=== PATIENT | male | born 2000 | race Caucasian/White ===

== ENCOUNTER 2022-09-08 09:13 | Emergency (ER) | payer OTHER ==
[~2022-09-08] VITALS: Ht 177.8 cm; Wt 68.0 kg
[~2022-09-08 09:13] MED LIST: ATOM25 PO; ATOM60 PO; CEPH500 PO; FISH1000 PO; MELA3 PO; MULTCH PO; QUETIAPINE FUM300 MG PO; Tenex1 MG GT; VITAMIN D31000 UNIT PO
[2022-09-08] MEDS ORDERED: IBUP800 PO (09:49)
[2022-09-08] MEDS ORDERED: AMOCLA875 PO (09:49)
== END 2022-09-08 10:00 | disposition home or self-care (01) ==
LOC: ER 09:13
DX: S51.812A Laceration without foreign body of left forearm, initial encounter (principal); W54.0XXA Bitten by dog, initial encounter; Z23 Encounter for immunization
CPT/HCPCS: 12002; 90471; 90714; 99282-25; A9270

== ENCOUNTER 2022-09-15 08:19 | Emergency (ER) | payer BC ==
[~2022-09-15] VITALS: Ht 177.8 cm; Wt 68.0 kg
[~2022-09-15 08:19] MED LIST changes: +AMOCLA875 PO; +IBUP800 PO
== END 2022-09-15 08:52 | disposition home or self-care (01) ==
LOC: ER 08:19
DX: Z48.02 Encounter for removal of sutures (principal)
CPT/HCPCS: 99281